=== PATIENT | female | born 1985 | race Caucasian/White ===

== ENCOUNTER 2017-06-29 09:03 | Emergency (ER) | payer OTHER ==
[~2017-06-29] VITALS: Ht 162.6 cm; Wt 71.9 kg
[2017-06-29] MEDS ORDERED: REGLAN10 MG PO (12:19)
[2017-06-29] MEDS ORDERED: NORCO 5/3251 TABLET PO (12:19)
[2017-06-29 12:47] VITALS: BP 131/80
== END 2017-06-29 12:47 | disposition home or self-care (01) ==
LOC: EME 09:03
DX: S06.0X0A Concussion without loss of consciousness, initial encounter (principal); F17.200 Nicotine dependence, unspecified, uncomplicated; W22.8XXA Striking against or struck by other objects, initial encounter; Y99.0 Civilian activity done for income or pay
CPT/HCPCS: 70450; 99281; 99283